=== PATIENT | male | born 1995 | race African-American/Black ===

== ENCOUNTER 2017-10-13 08:54 | Emergency (ER) | payer OTHER ==
[~2017-10-13] VITALS: Ht 175.3 cm; Wt 89.5 kg
[2017-10-13 08:59] VITALS: BP 144/66; TEMP 98
[2017-10-13] MEDS ORDERED: PROAIR HFA0.09 MG/AC IH (09:36)
[2017-10-13 09:53] LABS: INFLUENZA A NEGATIVE; INFLUENZA B NEGATIVE
[2017-10-13 10:31] VITALS: PULSE 84
== END 2017-10-13 10:32 | disposition home or self-care (01) ==
LOC: COL.ER 08:54
PROVIDERS: Physician Assistant
DX: J45.901 Unspecified asthma with (acute) exacerbation (principal); J06.9 Acute upper respiratory infection, unspecified; F17.210 Nicotine dependence, cigarettes, uncomplicated

== ENCOUNTER 2018-02-01 10:57 | Emergency (ER) | payer SELFPAY ==
[~2018-02-01] VITALS: Ht 175.3 cm; Wt 93.2 kg
[~2018-02-01 10:57] MED LIST: PROAIR HFA0.09 MG/AC IH
[2018-02-01 11:02] VITALS: BP 132/89
[2018-02-01 12:40] VITALS: TEMP 96.9
[2018-02-01 13:04] VITALS: PULSE 59
== END 2018-02-01 13:04 | disposition home or self-care (01) ==
LOC: COL.ER 10:57
DX: S33.9XXA Sprain of unspecified parts of lumbar spine and pelvis, initial encounter (principal); F17.210 Nicotine dependence, cigarettes, uncomplicated; X50.0XXA Overexertion from strenuous movement or load, initial encounter; Y92.89 Other specified places as the place of occurrence of the external cause; Y99.0 Civilian activity done for income or pay
CPT/HCPCS: J1885; J2360

== ENCOUNTER 2018-05-04 19:17 | Emergency (ER) | payer SELFPAY ==
[~2018-05-04] VITALS: Ht 175.3 cm; Wt 95.5 kg
[2018-05-04 19:20] VITALS: BP 147/69
[2018-05-04 21:01] VITALS: PULSE 70; TEMP 98.9
== END 2018-05-04 20:45 | disposition home or self-care (01) ==
LOC: COL.ER 19:17
DX: S61.213A Laceration without foreign body of left middle finger without damage to nail, initial encounter (principal); S61.215A Laceration without foreign body of left ring finger without damage to nail, initial encounter; F17.210 Nicotine dependence, cigarettes, uncomplicated; Z23 Encounter for immunization; W23.0XXA Caught, crushed, jammed, or pinched between moving objects, initial encounter; Y92.009 Unspecified place in unspecified non-institutional (private) residence as the place of occurrence of the external cause

== ENCOUNTER 2018-05-12 15:03 | Emergency (ER) | payer SELFPAY ==
[2018-05-12 15:07] VITALS: BP 132/63; PULSE 68; TEMP 98.3
== END 2018-05-12 15:13 | disposition home or self-care (01) ==
LOC: COL.ER 15:03
DX: S61.213D Laceration without foreign body of left middle finger without damage to nail, subsequent encounter (principal); S61.214D Laceration without foreign body of right ring finger without damage to nail, subsequent encounter